=== PATIENT | female | born 1985 | race Caucasian/White ===

== ENCOUNTER → 2016-09-03 | Outpatient (CLI) | payer MEDICAID ==
[~2016-09-03] MED LIST: DOCU100C37 PO; IBUP-1780 PO; OXYC-465 PO; PREN1TAB86 PO
== END ==
LOC: LAB 15:44
PROVIDERS: ATTEND Family Medicine
DX: B89 Unspecified parasitic disease (principal)
CPT/HCPCS: 87328; 87329